=== PATIENT | male | born 1990 | race Caucasian/White ===

== ENCOUNTER → 2019-08-03 | Outpatient (CLI) | payer BC ==
[2014-08-11 11:46] VITALS: BP 110/72
[~2019-08-03] MED LIST: TRAM50TA PO
[2019-08-03 14:29] LABS: BASO % 0 % (0-3); EOS # 0.1 x10^3/uL (0.0-0.7); EOS % 1 % (0-3); HEMATOCRIT 41.9 % (39.0-53.0); HEMOGLOBIN 14.2 g/dL (13.0-17.5); LYMPH # 2.9 x10^3/uL (1.0-4.8); LYMPH % 39 % (24-48); MEAN CORPUSCULAR HEMOGLOBIN 31 pg (25-35); MEAN CORPUSCULAR HGB CONC 34 g/dL (31-37); MEAN CORPUSCULAR VOLUME 92 fL (79-100); MONO % 13 % (0-9); NEUT # 3.6 x10^3uL (1.8-7.7); NEUT % 47 % (31-73); PLATELET COUNT 266 x10^3/uL (140-400); RED BLOOD COUNT 4.56 x10^6/uL (4.30-5.70); RED CELL DISTRIBUTION WIDTH 13.7 % (11.5-14.5); WHITE BLOOD COUNT 7.6 x10^3/uL (4.0-11.0)
[2019-08-03 14:38] LABS: ALBUMIN 3.9 g/dL (3.4-5.0); ALBUMIN/GLOBULIN RATIO 1.1 (1.0-1.7); CALCIUM 9.5 mg/dL (8.5-10.1); CREATININE 0.8 mg/dL (0.7-1.3); GFR 115.1; POTASSIUM 4.7 mmol/L (3.5-5.1); TOTAL BILIRUBIN 0.2 mg/dL (0.2-1.0); TOTAL PROTEIN 7.5 g/dL (6.4-8.2)
== END | disposition home or self-care (01) ==
LOC: LAB 13:48
PROVIDERS: ATTEND Physician Assistant Medical
DX: C71.9 Malignant neoplasm of brain, unspecified (principal); R22.1 Localized swelling, mass and lump, neck; Z85.841 Personal history of malignant neoplasm of brain
CPT/HCPCS: 36415; 80053; 85025

== ENCOUNTER 2020-04-18 14:28 | Inpatient (IN) | payer BC ==
[~2020-04-18] VITALS: Ht 182.9 cm; Wt 89.5 kg
[2020-04-18] MEDS ORDERED: IV NORMAL SALINE 1,000ML 1,000 ML IV ONE (14:45)
[2020-04-18] MEDS ORDERED: methylPREDNISolone SOD SUCC PF 125 MG/2 ML VIAL. IV ONE (14:45)
[2020-04-18] MEDS ORDERED: MAGNESIUM SULFATE 2GM 50 ML IV ONE (14:45)
--- NOTE | 2020-04-18 14:58 | PHYS DOC ---
Past History Past Medical History: Asthma, Depression, Other Past Surgical History: Cancer Surgery Alcohol Use: Occasionally Drug Use: None General Adult EDM: Chief Complaint: SHORTNESS OF BREATH HPI: HPI: History obtained from patient and father. Patient is a 21-year-old male with a history of glioblastoma and remote history of asthma who presents with chief complaint of shortness of breath. Father patient states that he has had shortness of breath progressed over the past several days to a couple weeks. They note that he has had upper respiratory congestion. He recently started amoxicillin that was called in by his primary care physician. He is also taking Decadron daily since October of this year due to his glioblastoma. He is currently taking Avastin and Trametinil for his glioblastoma. Dad states occasionally he shows signs of aspiration when he gets very tired taking his medication. Patient is largely immobile dad states. Denies any true blood clot in legs or lungs. Patient denies any chest pain. Denies fevers. Denies cough. Denies any syncope. Patient did receive DuoNeb breathing treatments in route by EMS with improvement of his breathing. No other complaints. Review of Systems: Review of Systems: Constitutional: Denies fever or chills Eyes: Denies change in visual acuity HENT: Positive for nasal congestion Respiratory: Positive shortness of breath Cardiovascular: Denies chest pain or edema GI: Denies abdominal pain, nausea, vomiting, bloody stools or diarrhea : Denies dysuria Musculoskeletal: Denies back pain or joint pain Integument: Denies rash Neurologic: Denies headache, focal weakness or sensory changes Endocrine: Denies polyuria or polydipsia Lymphatic: Denies swollen glands Psychiatric: Denies depression or anxiety Current Medications: Current Meds: Current Medications Medications (Trade) Dose Ordered Sig/Puma Start Time Stop Time Status Last Admin Dose Admin Magnesium Sulfate 50 ml @ 25 mls/hr 1X ONCE 04/18/20 14:45 04/18/20 16:44 Methylprednisolone Sodium Succinate (SOLU-Medrol 125MG VIAL) 125 mg 1X ONCE 04/18/20 14:45 04/18/20 14:46 DC Sodium Chloride 1,000 ml @ 1,000 mls/hr 1X ONCE 04/18/20 14:45 04/18/20 15:44 Allergies: Allergies: Allergies Coded Allergies Type Severity Reaction Last Updated Verified cefaclor Allergy Intermediate Hives 04/18/20 Yes Physical Exam: PE: Constitutional: Well developed, well nourished, no acute distress, non-toxic appearance. [] HENT: Normocephalic, atraumatic, bilateral external ears normal, oropharynx moist, no oral exudates, nose normal. Dry mucous membranes. [] Eyes: PERRLA, EOMI, conjunctiva normal, no discharge. [] Neck: Normal range of motion, no tenderness, supple, no stridor. [] Cardiovascular: Tachycardic, regular, no murmur [] Lungs & Thorax: Poor inspiratory effort. Diminished lung sounds throughout. No obvious wheezes appreciated. Abdomen: soft, no tenderness, no masses, no pulsatile masses. [] Skin: Warm, dry, no erythema, no rash. [] Back: No tenderness, no CVA tenderness. [] Extremities: No tenderness, no cyanosis, no clubbing, ROM intact, no edema. [] Neurologic: Alert and oriented X 3, normal motor function, normal sensory function, no focal deficits noted. [] Psychologic: Affect normal, judgement normal, mood normal. [] Current Patient Data: Labs: Laboratory Tests Test 04/18/20 15:11 White Blood Count 12.5 x10^3/uL Red Blood Count 5.13 x10^6/uL Hemoglobin 14.4 g/dL Hematocrit 44.9 % Mean Corpuscular Volume 88 fL Mean Corpuscular Hemoglobin 28 pg Mean Corpuscular Hemoglobin Concent 32 g/dL Red Cell Distribution Width 17.2 % Platelet Count 238 x10^3/uL Neutrophils (%) (Auto) 69 % Lymphocytes (%) (Auto) 25 % Monocytes (%) (Auto) 5 % Eosinophils (%) (Auto) 1 % Basophils (%) (Auto) 0 % Neutrophils # (Auto) 8.6 x10^3uL Lymphocytes # (Auto) 3.2 x10^3/uL Monocytes # (Auto) 0.7 x10^3/uL Eosinophils # (Auto) 0.1 x10^3/uL Basophils # (Auto) 0.0 x10^3/uL Sodium Level 136 mmol/L Potassium Level 4.0 mmol/L Chloride Level 98 mmol/L Carbon Dioxide Level 34 mmol/L Anion Gap 4 Blood Urea Nitrogen 28 mg/dL Creatinine 0.9 mg/dL Estimated GFR (Cockcroft-Gault) 100.5 Glucose Level 76 mg/dL Lactic Acid Level 1.9 mmol/L Calcium Level 9.4 mg/dL Magnesium Level 2.0 mg/dL Troponin I Quantitative < 0.017 ng/mL IA-Hoo-T-Type Natriuretic Peptide 11 pg/mL Current Medications Medications (Trade) Dose Ordered Sig/Puma Route PRN Reason Start Time Stop Time Status Last Admin Dose Admin Sodium Chloride 1,000 ml @ 1,000 mls/hr 1X ONCE IV 04/18/20 14:45 04/18/20 15:44 DC 04/18/20 15:32 Magnesium Sulfate 50 ml @ 25 mls/hr 1X ONCE IV 04/18/20 14:45 04/18/20 16:44 DC 04/18/20 15:32 Methylprednisolone Sodium Succinate (SOLU-Medrol 125MG VIAL) 125 mg 1X ONCE IV 04/18/20 14:45 04/18/20 14:46 DC 04/18/20 15:32 Iohexol (Omnipaque 350 Mg/ml) 100 ml 1X ONCE IV 04/18/20 15:00 04/18/20 15:01 DC 04/18/20 15:21 Vancomycin HCl 1 gm/Sodium Chloride 250 ml @ 250 mls/hr 1X ONCE IV 04/18/20 16:15 04/18/20 16:20 DC Piperacillin Sod/ Tazobactam Sod 3.375 gm/Sodium Chloride 50 ml @ 100 mls/hr 1X ONCE IV 04/18/20 16:15 04/18/20 16:44 DC Vancomycin HCl 2 gm/Sodium Chloride 500 ml @ 250 mls/hr 1X ONCE IV 04/18/20 16:30 04/18/20 18:29 EKG: EKG: [] EKG consistent with sinus tachycardia. Ventricular rate of 104 bpm. [place] normal. Intervals normal. No acute ischemia noted. Radiology/Procedures: Radiology/Procedures: [address] [address] IMAGING REPORT Signed PATIENT: DWAYNE NUÑEZ ACCOUNT: [id number] : 1990 LOCATION: ER AGE: 29 SEX: M EXAM STATUS: REG ER ORD. PHYSICIAN: ROMANA LARRY DO REASON: SOB. immobil. eval for PNA vs. PE PROCEDURE: CT ANGIOGRAPHY CHEST EXAMINATION: CTA CHEST CLINICAL HISTORY: Shortness of breath concerning for pneumonia versus PE Technique: Spiral CT acquisition of the chest from the thoracic inlet to the upper abdomen following IV contrast with coronal and sagittal reformatted images also provided for review. CT Dose Reduction Employed: One or more of the following individualized dose reduction techniques were utilized for this examination: 1. Automated exposure control 2. Adjustment of the mA and/or kV according to patient size 3. Use of iterative reconstruction technique. Comparison: Chest radiograph same day FINDINGS: Limitations: None. Lines, Tubes, and Devices: None. Pulmonary Vasculature: No evidence of main, lobar, or segmental pulmonary arterial thrombus. Normal caliber of the main pulmonary artery. Lung Parenchyma, Pleura, and Airways: Consolidation primarily in the bilateral lower lobes but also in the right middle lobe and posterior inferior left upper lobe. No pneumothorax or pleural effusion. Central airways patent. Lower Neck, Lymph Nodes, and Mediastinum: Visualized thyroid gland within normal limits. No mediastinal, hilar, or axillary lymphadenopathy. Heart, Pericardium, and Thoracic Vessels: Cardiac chambers normal in size. Small pericardial effusion. Thoracic aorta within normal limits. No coronary artery atherosclerotic calcifications are noted, although the study is not optimized for coronary assessment. Bones and Soft Tissues: No acute osseous abnormality. Upper Abdomen: Borderline hepatic steatosis. IMPRESSION: No evidence of pulmonary embolism. Multifocal consolidation as described, compatible with pneumonia. Small pericardial effusion. Electronically signed by: Luis Corbin DO (04/18/2020 3:49 PM) [id number] DICTATED AND SIGNED BY: LUIS CORBIN DO DATE: 04/18/20 1535 CC: KATELIN FRANK; ROMANA LARRY DO ~MTH0 0 [] Heart Score: Risk Factors: Risk Factors: DM, Current or recent (<one month) smoker, HTN, HLP, family history of CAD, obesity. Risk Scores: Score 0 - 3: 2.5% MACE over next 6 weeks - Discharge Home Score 4 - 6: 20.3% MACE over next 6 weeks - Admit for Clinical Observation Score 7 - 10: 72.7% MACE over next 6 weeks - Early Invasive Strategies Course & Med Decision Making: Course & Med Decision Making Pertinent Labs and Imaging studies reviewed. (See chart for details) [] Patient is a 29-year-old male with a history of glioblastoma currently taking chemotherapy medication who presents with chief complaint of progressive sh ortness of breath. Initial vital signs notable for mild tachycardia. Lung sounds diminished throughout. No obvious wheezes appreciated. Satting appropriately on room air. Blood cultures were obtained and pending. CT of the chest was obtained evaluate for infection versus PE. Multifocal pneumonia is present. Skin related to aspiration. Shows no signs of neutropenia. Covid swab pending as well. Vancomycin and Zosyn were administered given his chemotherapy status. Patient and family did request hospitalization or facility. Patient has been signed out and accepted by Dr. Romero. Remains hemodynamically stable. Dragon Disclaimer: Dragon Disclaimer: This electronic medical record was generated, in whole or in part, using a voice recognition dictation system. Departure Departure: Impression: Primary Impression: Multifocal pneumonia Additional Impression: Glioblastoma Disposition: ADMITTED INPT THIS HOSP Condition: STABLE Referrals: KATELIN FRANK (PCP) ROMANA LARRY DO Apr 18, 2020 14:58
[2020-04-18] MEDS ORDERED: IOHEXOL 350 MG/ML 100 ML VIAL. IV ONE (15:00)
--- NOTE | 2020-04-18 15:02 | RAD ---
Examination: XR CHEST 1V History: Reason: SOB / Spl. Instructions: / History: Comparison/Correlation: None Findings: Portable peripheral view chest was obtained. Multiple manipulations noted. Bibasal atelecta sis is present. No significant effusion suspected. No pneumothorax. Bony structures are unremarkable. Impression: Bibasal atelectasis. Very limited pulmonary inflation. Consider interval follow-up two-view chest x-r ay for more complete assessment. Electronically signed by: Tc Alegria MD (04/18/2020 2:59 PM) [id number]
[2020-04-18 15:46] LABS: BASO % 0 % (0-3); EOS # 0.1 x10^3/uL (0.0-0.7); EOS % 1 % (0-3); HEMATOCRIT 44.9 % (39.0-53.0); HEMOGLOBIN 14.4 g/dL (13.0-17.5); LYMPH # 3.2 x10^3/uL (1.0-4.8); LYMPH % 25 % (24-48); MEAN CORPUSCULAR HEMOGLOBIN 28 pg (25-35); MEAN CORPUSCULAR HGB CONC 32 g/dL (31-37); MEAN CORPUSCULAR VOLUME 88 fL (79-100); MONO # 0.7 x10^3/uL (0.0-1.1); MONO % 5 % (0-9); NEUT # 8.6 x10^3uL (1.8-7.7); NEUT % 69 % (31-73); PLATELET COUNT 238 x10^3/uL (140-400); RED BLOOD COUNT 5.13 x10^6/uL (4.30-5.70); RED CELL DISTRIBUTION WIDTH 17.2 % (11.5-14.5); WHITE BLOOD COUNT 12.5 x10^3/uL (4.0-11.0)
--- NOTE | 2020-04-18 15:52 | RAD ---
EXAMINATION: CTA CHEST CLINICAL HISTORY: Shortness of breath concerning for pneumonia versus PE Technique: Spiral CT acquisition of the chest from the thoracic inlet to the upper abdomen following IV contrast with coronal and sagittal reformatted images also provided for review. CT Dose Reduction Employed: One or more of the following individualized dose reduction techniques wer e utilized for this examination: 1. Automated exposure control 2. Adjustment of the mA and/or kV ac cording to patient size 3. Use of iterative reconstruction technique. Comparison: Chest radiograph same day FINDINGS: Limitations: None. Lines, Tubes, and Devices: None. Pulmonary Vasculature: No evidence of main, lobar, or segmental pulmonary arterial thrombus. Normal c aliber of the main pulmonary artery. Lung Parenchyma, Pleura, and Airways: Consolidation primarily in the bilateral lower lobes but also i n the right middle lobe and posterior inferior left upper lobe. No pneumothorax or pleural effusion. Central airways patent. Lower Neck, Lymph Nodes, and Mediastinum: Visualized thyroid gland within normal limits. No mediastin al, hilar, or axillary lymphadenopathy. Heart, Pericardium, and Thoracic Vessels: Cardiac chambers normal in size. Small pericardial effusion . Thoracic aorta within normal limits. No coronary artery atherosclerotic calcifications are noted, a lthough the study is not optimized for coronary assessment. Bones and Soft Tissues: No acute osseous abnormality. Upper Abdomen: Borderline hepatic steatosis. IMPRESSION: No evidence of pulmonary embolism. Multifocal consolidation as described, compatible with pneumonia. Small pericardial effusion. Electronically signed by: Luis Obrien DO (04/18/2020 3:49 PM) [id number]
[2020-04-18 15:54] LABS: CALCIUM 9.4 mg/dL (8.5-10.1); CREATININE 0.9 mg/dL (0.7-1.3); GFR 100.5
[2020-04-18] MEDS ORDERED: PIPERACILLIN/TAZOBACTAM 3.375 GM in IV NORMAL SALINE 50ML 50 ML IV ONE ×2 (16:15→20:30)
[2020-04-18] MEDS ORDERED: VANCOMYCIN 1 GM in IV NORMAL SALINE 250ML 250 ML IV ONE (16:15)
[2020-04-18] MEDS ORDERED: VANCOMYCIN 2 GM in IV NORMAL SALINE 500ML 500 ML IV ONE (16:30)
--- NOTE | 2020-04-18 17:26 | EKG ---
[address] [address] Test Date: 2020-04-18 Test Time: 17:21:08 Pat Name: DWAYNE NUÑEZ Department: Room: Gender: M Crushing Foreman: FABIANA : 1990 Requested By: ROMANA LARRY Order Number: [id number] Reading MD: Measurements Intervals [place] Rate: 104 P: 47 MS: 136 QRS: 9 QRSD: 94 T: 48 QT: 324 QTc: 432 Interpretive Statements SINUS TACHYCARDIA OTHERWISE NORMAL ECG RI6.02 No previous ECG available for comparison
[2020-04-18 20:00] VITALS: BP 118/90
[2020-04-18] MEDS ORDERED: BUPR150T11 PO (20:36)
[2020-04-18] MEDS ORDERED: TRAM2TAB PO (20:36)
[2020-04-18] MEDS ORDERED: ACET325T21 PO (20:36)
[2020-04-18] MEDS ORDERED: LACT1CAP19 PO (20:36)
[2020-04-18] MEDS ORDERED: VITA1TAB19 PO (20:36)
[2020-04-18] MEDS ORDERED: HYDR-2155 PO (20:36)
[2020-04-18] MEDS ORDERED: GABA600T7 PO (20:36)
[2020-04-18] MEDS ORDERED: VITA50004 PO (20:36)
[2020-04-18] MEDS ORDERED: DIAZ5TAB4 PO (20:36)
[2020-04-18] MEDS ORDERED: LEVO50TA72 PO (20:36)
[2020-04-18] MEDS ORDERED: IPRA4AER INH (20:36)
[2020-04-18] MEDS ORDERED: DEXA6TAB6 PO (20:38)
[2020-04-18 21:00] VITALS: BP 104/61
[2020-04-18 22:00] VITALS: BP 97/67
[2020-04-18 23:29] VITALS: BP 109/68
[2020-04-19 02:02] VITALS: BP 108/79
[2020-04-19 03:05] VITALS: BP 106/80
[2020-04-19] MEDS ORDERED: DOCU-109 PO (03:29)
[2020-04-19 04:07] VITALS: BP 115/81
[2020-04-19] MEDS: VANCOMYCIN 1.5 GM in IV NORMAL SALINE 500ML 500 ML IV SCH ×2 (06:00→18:00)
[2020-04-19 06:28] VITALS: BP 120/87
[2020-04-19 06:31] LABS: BASO % 0 % (0-3); EOS % 0 % (0-3); HEMATOCRIT 38.4 % (39.0-53.0); HEMOGLOBIN 12.5 g/dL (13.0-17.5); LYMPH # 1.2 x10^3/uL (1.0-4.8); LYMPH % 12 % (24-48); MEAN CORPUSCULAR HEMOGLOBIN 28 pg (25-35); MEAN CORPUSCULAR HGB CONC 33 g/dL (31-37); MEAN CORPUSCULAR VOLUME 87 fL (79-100); MONO # 0.4 x10^3/uL (0.0-1.1); MONO % 4 % (0-9); NEUT # 8.7 x10^3uL (1.8-7.7); NEUT % 84 % (31-73); PLATELET COUNT 209 x10^3/uL (140-400); RED BLOOD COUNT 4.42 x10^6/uL (4.30-5.70); RED CELL DISTRIBUTION WIDTH 17.2 % (11.5-14.5); WHITE BLOOD COUNT 10.4 x10^3/uL (4.0-11.0)
[2020-04-19] MEDS ORDERED: traMADol 50 MG TABLET PO PRN (06:42)
[2020-04-19] MEDS ORDERED: ACETAMINOPHEN 325 MG TABLET PO PRN (06:45)
[2020-04-19 07:22] LABS: CALCIUM 8.5 mg/dL (8.5-10.1); CREATININE 0.7 mg/dL (0.7-1.3); GFR 134.3; POTASSIUM 4.1 mmol/L (3.5-5.1)
[2020-04-19] MEDS ORDERED: FLU VACC QS 2020-21(6MOS+)/PF 0.5 ML SYRINGE. VAX IM ONE (08:00)
[2020-04-19] MEDS: LACTOBACILLUS RHAMNOSUS GG 1 CAPSULE. PO SCH (08:16)
[2020-04-19] MEDS: CHOLECALCIFEROL (VITAMIN D3) 1,000 UNIT TABLET PO SCH (08:16)
[2020-04-19] MEDS: FOLIC ACID 1 MG TABLET PO SCH (08:16)
[2020-04-19] MEDS: VITAMIN B COMPLEX CAPSULE. PO SCH (08:17)
[2020-04-19] MEDS: GABAPENTIN 300 MG CAPSULE. PO SCH ×3 (08:17→20:31)
[2020-04-19] MEDS: DOCUSATE SODIUM 100 MG CAPSULE PO SCH ×2 (08:17→20:31)
[2020-04-19] MEDS: LEVOTHYROXINE 50 MCG TABLET PO SCH (08:17)
[2020-04-19] MEDS: buPROPion SR 150 MG TABLET.SA PO SCH (08:17)
[2020-04-19] MEDS: DEXAMETHASONE 4 MG TABLET PO SCH (08:17)
[2020-04-19] MEDS: IPRATROPIUM/ALBUTEROL 20/100mcg/INH INHALER. INH SCH ×4 (09:00→20:31)
[2020-04-19] MEDS: TRAMETINIB DIMETHYL SULFOXIDE 2 MG PO SCH (09:00)
[2020-04-19] MEDS: VANCOMYCIN PER PHARMACY MC PRN (13:51)
[2020-04-19] MEDS: MEROPENEM 1 GM in IV NORMAL SALINE 100ML 100 ML IV SCH ×2 (15:00→21:45)
--- NOTE | 2020-04-19 16:10 | HP ---
ADMIT DATE: 04/18/2020 HISTORY OF PRESENT ILLNESS: The patient is a 29-year-old male patient with multiple medical problems including history of medulloblastoma diagnosed in 2006, treated with surgery, chemotherapy, and radiation. He was also diagnosed with glioblastoma in 2019 and had had surgery twice in 2019 and 2019 and treated also with chemotherapy, radiation therapy, and proton radiation. He also was known to have childhood bronchial asthma and was basically noted by his mother to be short of breath and extremely tachypneic. According to his mother, he also has dysphagia and this has been going on for the last 2-3 months and therefore, she called the ambulance and was transferred to [facility] Emergency Room, where he was extensively investigated. His lab work showed that he has leukocytosis with a white cell count 12,500. His chemistry was unremarkable. His chest x-ray showed initially the bilateral atelectasis; however, CT angio of the chest showed the patient has no evidence of pulmonary emboli; however, he has multifocal consolidation primarily in the bilateral lower lobes, but also in the right middle lobe and posterior inferior left upper lobe. No pneumothorax or pleural effusion. Central airways are patent, and the patient was admitted with community-acquired pneumonia with possible aspiration pneumonia given his neurological status and was started on IV Zosyn and vancomycin. He was continued on dexamethasone, which he is getting on a daily basis for his glioblastoma. He is basically mostly homebound. Both parents are working from home, and has very little exposure to COVID-19, although he was swabbed in the Emergency Room. PAST MEDICAL HISTORY: Significant for: 1. Bronchial asthma during childhood. 2. Medulloblastoma diagnosed in 2006, treated with resection and chemotherapy as well as radiation treatment. 3. Glioblastoma multiforme diagnosed in 2019. At that time, he underwent surgery as well as chemotherapy and radiation and has another surgery in 2020. He was treated also with proton radiation. PAST SURGICAL HISTORY: Multiple surgical resections of that medulloblastoma and his glioblastoma. He has had no other surgeries. ALLERGIES: HE IS ALLERGIC TO CEFACLOR. MEDICATIONS: He is currently on following medications: He is on Mekinist 2 mg daily. He is on ipratropium bromide, albuterol sulfate 1 puff 4 times a day, hydrocodone/APAP 5/325 one tablet every 6 hours, tramadol 50 mg 1-2 tablets every 6 hours, acetaminophen 650 mg every 4-6 hours, gabapentin 600 mg 2 times a day, Wellbutrin-SR 150 mg daily, diazepam 5 mg at bedtime, Colace 100 mg twice a day, lactobacillus rhamnosus 1 capsule twice a day, dexamethasone 2 mg daily, levothyroxine sodium 50 mcg once a day, vitamin B complex 1 tablet once a day and vitamin D/folic acid 1 tablet daily. FAMILY HISTORY: Both parents are alive and healthy. He has one sister who at the age of 22 in 2002 due to melanoma. SOCIAL HISTORY: He lives with his parents. He does not smoke or drink alcohol; however, he did experiment with marijuana and has used CBD oil for a therapeutic trial. REVIEW OF SYSTEMS: The patient stated that he has diplopia and he does use glasses for that. He also is hard of hearing in the left ear and has multiple episodes of nosebleed. According to his mom. He also has difficulty swallowing and chokes with food, although there is no history of nausea and vomiting. He does have constipation and he does not have any bowel movements for 4-5 days. He is mostly bedbound, wheelchair bound. He has been unsteady and unable to walk since his first surgery on his medulloblastoma. PHYSICAL EXAMINATION: GENERAL: On arrival to the Emergency Room, he looked well and was clearly in no apparent respiratory distress. No pallor, jaundice, cyanosis or thyromegaly. No jugular venous distention or limb edema. VITAL SIGNS: His heart rate was 104, blood pressure was 130/104, temperature was 97.3, respiratory rate was 18 and oxygen saturation was 94% on 2 liters of oxygen. HEAD, EYES, EARS, NOSE AND THROAT: Showed normocephalic, atraumatic. NECK: Supple. HEART: Showed normal first and second heart sounds. No gallop, rub or murmur. CHEST: Clear to auscultation. No crepitation or rhonchi. ABDOMEN: Distended, soft, nontender. No guarding or rigidity. No organomegaly. All hernial orifices intact. Bowel sounds normal. NEUROLOGIC: He was awake, alert, responding appropriately. All his cranial nerves are grossly intact, although he does have diplopia as well as sensorineural deafness in the left ear. EXTREMITIES: He moves upper extremities probably too much to good extent. The lower extremities has bilateral foot drop. He is mostly bedbound. LABORATORY DATA: His lab work on arrival to the Emergency Room showed a white cell count of 12,500, hemoglobin 14, hematocrit 44, MCV 88, and platelet count 238,000. Serum sodium was 136, potassium 4, chloride 98, bicarbonate 34, anion gap of 4, BUN 28, creatinine 0.9, estimated GFR was 100 mL per minute. His glucose was 76 and calcium was 9.4, magnesium was 2. His chest x-ray showed bibasilar atelectasis with very limited pulmonary inflation; however, he did have a CT angio of the chest, which basically showed no evidence of pulmonary embolism; however, had multifocal consolidation as described compatible with pneumonia and small pericardial effusion. ASSESSMENT AND PLAN: In summary, this is a 29-year-old male patient who was admitted with increasing shortness of breath and tachypnea as well as hypoxia, who was admitted with probably community-acquired pneumonia or aspiration pneumonia as he does have dysphagia. Other medical problems include: 1. Medulloblastoma diagnosed in 2006, treated with resection, chemotherapy and radiation therapy. 2. Childhood bronchial asthma. 3. He was diagnosed with glioblastoma multiforme in 2018, treated with surgery as well as chemo or radiation therapy and he underwent again another resection in 2019 and treated with chemotherapy and radiation treatment. He is also known to have hypothyroidism. My plan is obviously to continue with the IV antibiotic. Continue with dexamethasone. We did actually send his swab for COVID-19, the result of which is still pending at the time of this dictation. ANGELA DANIELSON MD DR: TIM/renato JOB#: [id number] / [id number]
[2020-04-19 19:30] VITALS: BP 125/97
--- NOTE | 2020-04-19 20:12 | PN ---
DATE: 04/19/2020 SUBJECTIVE: The patient is resting, slightly propped up in bed, in no apparent respiratory distress. He denied any complaint. He was admitted yesterday for possible community-acquired pneumonia versus aspiration pneumonia as he has dysphagia. He is now on 2 liters of oxygen, maintaining his oxygen saturation at 95%. He is not on any oxygen at home. PHYSICAL EXAMINATION: GENERAL: When I examined him, he looked well and was clearly in no apparent respiratory distress. No pallor, jaundice, cyanosis or thyromegaly. No jugular venous distention. No limb edema. VITAL SIGNS: His heart rate was 90, blood pressure was 120/87, temperature was 98.3, respiratory rate was 19 and oxygen saturation was 95% on 2 liters of oxygen. HEAD, EYES, EARS, NOSE, AND THROAT: Showed normocephalic, atraumatic. NECK: Supple. HEART: Showed normal first and second heart sounds. No gallop or murmur. CHEST: Clear to auscultation. No crepitation or rhonchi. ABDOMEN: Distended, soft, nontender. NEUROLOGIC: He is awake, alert, responding appropriately, although sometimes difficult to understand. He has diplopia, severe sensorineural deafness in the left ear. He is mostly bedbound. His intake over the last 24 hours and output are incompletely recorded. LABORATORY DATA: His lab work this morning showed a white cell count of 10,400; hemoglobin 12.5; hematocrit 38; MCV 87; and platelet count 209,000. Serum sodium 138, potassium 4.1, chloride 100, bicarbonate 30, anion gap of 8, BUN 16, creatinine 0.7, estimated GFR was 134 mL per minute, his glucose 134, calcium was 8.5 and lactic acid is 1.9. ASSESSMENT: 1. This is a 29-year-old male patient who was admitted with probably aspiration pneumonia versus community-acquired pneumonia. 2. Dysphagia. 3. Hypothyroidism. 4. Bronchial asthma. 5. Glioblastoma that was resected twice. He is now on chemotherapy and dexamethasone. 6. Remote history of medulloblastoma, 2006, treated with resection, chemotherapy and radiation treatment. PLAN: To continue with IV antibiotic. Continue with dexamethasone. Continue with all his other medications. Await the result of the COVID-19 by PCR. ANGELA DANIELSON MD DR: TIM/renato JOB#: [id number] / [id number]
[2020-04-19] MEDS: diazePAM 5 MG TABLET. PO PRN (20:35)
[2020-04-19] MEDS ORDERED: BISACODYL 10 MG SUPP.RECT PR ONE (21:00)
[2020-04-19 23:32] VITALS: BP 111/83
[2020-04-20 05:33] VITALS: BP 123/90
[2020-04-20] MEDS ORDERED: BISACODYL 10 MG SUPP.RECT PR PRN (06:00)
[2020-04-20] MEDS: LEVOTHYROXINE 50 MCG TABLET PO SCH (07:51)
[2020-04-20] MEDS: MEROPENEM 1 GM in IV NORMAL SALINE 100ML 100 ML IV SCH ×3 (07:51→22:57)
[2020-04-20] MEDS: VANCOMYCIN 1.5 GM in IV NORMAL SALINE 500ML 500 ML IV SCH ×2 (07:52→20:15)
[2020-04-20 08:21] LABS: ALBUMIN/GLOBULIN RATIO 0.6 (1.0-1.7); CALCIUM 8.6 mg/dL (8.5-10.1); CREATININE 0.8 mg/dL (0.7-1.3); GFR 115.1; MAGNESIUM 2.1 mg/dL (1.8-2.4); TOTAL BILIRUBIN 0.1 mg/dL (0.2-1.0); TOTAL PROTEIN 5.4 g/dL (6.4-8.2); VANC TR 11.3 mcg/mL (10.0-20.0)
[2020-04-20] MEDS ORDERED: FLU VACC QS 2020-21(6MOS+)/PF 0.5 ML SYRINGE. VAX IM ONE (09:00)
[2020-04-20] MEDS: IPRATROPIUM/ALBUTEROL 20/100mcg/INH INHALER. INH SCH ×4 (09:00→20:14)
[2020-04-20] MEDS: DEXAMETHASONE 4 MG TABLET PO SCH (09:41)
[2020-04-20] MEDS: VITAMIN B COMPLEX CAPSULE. PO SCH (09:41)
[2020-04-20] MEDS: buPROPion SR 150 MG TABLET.SA PO SCH (09:42)
[2020-04-20] MEDS: GABAPENTIN 300 MG CAPSULE. PO SCH ×3 (09:42→20:14)
[2020-04-20] MEDS: LACTOBACILLUS RHAMNOSUS GG 1 CAPSULE. PO SCH (09:42)
[2020-04-20] MEDS: CHOLECALCIFEROL (VITAMIN D3) 1,000 UNIT TABLET PO SCH (09:42)
[2020-04-20] MEDS: FOLIC ACID 1 MG TABLET PO SCH (09:42)
[2020-04-20] MEDS: DOCUSATE SODIUM 100 MG CAPSULE PO SCH ×2 (09:42→20:14)
[2020-04-20] MEDS: TRAMETINIB DIMETHYL SULFOXIDE 2 MG PO SCH (11:30)
[2020-04-20] MEDS ORDERED: MAGNESIUM CITRATE 296 ML SOLUTION. PO ONE (13:00)
[2020-04-20] MEDS ORDERED: SODIUM CHL/ALOE VERA NASAL GEL 14.1GM TUBE. NS PRN (13:00)
[2020-04-20] MEDS: VANCOMYCIN PER PHARMACY MC PRN (14:01)
[2020-04-20 19:46] VITALS: BP_SYST 107; BP_SYST 114; BP_DIAS 49; BP_DIAS 84
--- NOTE | 2020-04-20 19:59 | PN ---
DATE: 04/20/2020 SUBJECTIVE: The patient is resting, slightly propped up in bed, in no apparent distress. He did complain of stuffiness in his nostril and some dried blood. He also had constipation, although has 2 small bowel movements; however, he is afebrile. He is maintaining his oxygen saturation at 93% on room air. PHYSICAL EXAMINATION: GENERAL: When I examined him, he looked well and was clearly in no apparent respiratory distress. There is no pallor, jaundice, cyanosis or thyromegaly. No jugular venous distention or limb edema. VITAL SIGNS: Her heart rate was 87, blood pressure was 123/90, temperature was 98, respiratory rate was 20, and oxygen saturation was 96% on 2 liters of oxygen. HEAD, EYES, EARS, NOSE, THROAT: Showed normocephalic, atraumatic. NECK: Supple. HEART: Showed normal first and second heart sounds. No gallop, rub or murmur. CHEST: Clear to auscultation. No crepitation or rhonchi. ABDOMEN: Distended, soft, nontender. NEUROLOGIC: He is awake, alert, responding appropriately. He does have some dysarthria and he apparently has marked cerebellar ataxia. He is mostly bedbound, chair bound. His intake was 1170, output was 850. LABORATORY DATA: As of this morning, his serum sodium 143, potassium 4, chloride 106, bicarbonate 32. Her anion gap of 5, BUN 23, creatinine 0.8, estimated GFR was 115 mL per minute. Her glucose 110, calcium was 8.8, magnesium was 2.1. Total bilirubin, AST, ALT, alkaline phosphatase were normal. Total protein was 5.4, albumin 2. Her coronavirus by PCR was not detectable. ASSESSMENT: 1. This is a 29-year-old male patient who was admitted with probable aspiration pneumonia versus community-acquired pneumonia. 2. Dysphagia. 3. Hypothyroidism. 4. Bronchial asthma. 5. Glioblastoma multiforme that was resected twice. He is now on chemotherapy and dexamethasone. 6. Remote history of medulloblastoma in 2006 treated with resection, chemotherapy and radiation treatment. PLAN: To continue with IV antibiotic. Continue with dexamethasone. Continue with all his other medications. His COVID-19 by PCR was negative. I will add Flonase as well as saline nasal spray. ANGELA DANIELSON MD DR: Denise JOB#: [id number] / [id number]
[2020-04-20] MEDS: ACETAMINOPHEN 325 MG TABLET PO SCH (20:14)
[2020-04-20] MEDS: diazePAM 5 MG TABLET. PO PRN (21:26)
[2020-04-20 23:00] VITALS: BP 90/57
[2020-04-21] VITALS (7 sets, daily range): BP systolic 115–139; BP diastolic 84–104
[2020-04-21] MEDS: ACETAMINOPHEN 325 MG TABLET PO SCH ×6 (04:00→19:39)
[2020-04-21] MEDS: MEROPENEM 1 GM in IV NORMAL SALINE 100ML 100 ML IV SCH ×3 (06:06→22:07)
[2020-04-21] MEDS: LEVOTHYROXINE 50 MCG TABLET PO SCH (06:06)
[2020-04-21] MEDS: traMADol 50 MG TABLET PO PRN ×2 (06:31→15:03)
[2020-04-21 08:15] LABS: HEMATOCRIT 39.7 % (39.0-53.0); HEMOGLOBIN 12.7 g/dL (13.0-17.5); RED BLOOD COUNT 4.5 x10^6/uL (4.30-5.70); RED CELL DISTRIBUTION WIDTH 17.1 % (11.5-14.5); WHITE BLOOD COUNT 9.4 x10^3/uL (4.0-11.0)
[2020-04-21 08:18] LABS: VANC TR 13.6 mcg/mL (10.0-20.0)
[2020-04-21 08:21] LABS: ALBUMIN 2.2 g/dL (3.4-5.0); ALBUMIN/GLOBULIN RATIO 0.5 (1.0-1.7); CREATININE 0.7 mg/dL (0.7-1.3); GFR 134.3; POTASSIUM 4.5 mmol/L (3.5-5.1); TOTAL BILIRUBIN 0.2 mg/dL (0.2-1.0); TOTAL PROTEIN 6.7 g/dL (6.4-8.2)
[2020-04-21] MEDS ORDERED: METHYL SALICYLATE/MENTHOL TOPICAL OINTMENT 57GM TUBE. TP PRN (08:45)
[2020-04-21] MEDS: BACLOFEN 10 MG TABLET PO PRN ×2 (08:47→19:38)
[2020-04-21] MEDS: VANCOMYCIN 1.5 GM in IV NORMAL SALINE 500ML 500 ML IV SCH ×2 (08:47→19:40)
[2020-04-21] MEDS: HYDROcodone/APAP 5/325MG 1 TAB TABLET PO PRN ×2 (08:48→13:40)
[2020-04-21] MEDS: VITAMIN B COMPLEX CAPSULE. PO SCH (08:48)
[2020-04-21] MEDS: DOCUSATE SODIUM 100 MG CAPSULE PO SCH ×2 (08:48→19:39)
[2020-04-21] MEDS: FOLIC ACID 1 MG TABLET PO SCH (08:48)
[2020-04-21] MEDS: LACTOBACILLUS RHAMNOSUS GG 1 CAPSULE. PO SCH (08:48)
[2020-04-21] MEDS: CHOLECALCIFEROL (VITAMIN D3) 1,000 UNIT TABLET PO SCH (08:48)
[2020-04-21] MEDS: buPROPion SR 150 MG TABLET.SA PO SCH (08:48)
[2020-04-21] MEDS: GABAPENTIN 300 MG CAPSULE. PO SCH ×3 (08:48→19:39)
[2020-04-21] MEDS: DEXAMETHASONE 4 MG TABLET PO SCH (08:49)
[2020-04-21] MEDS: IPRATROPIUM/ALBUTEROL 20/100mcg/INH INHALER. INH SCH ×4 (08:52→19:41)
[2020-04-21] MEDS: FLUTICASONE 50MCG/NASAL SPRAY 16GM BOTTLE. NS SCH (08:52)
[2020-04-21] MEDS: TRAMETINIB DIMETHYL SULFOXIDE 2 MG PO SCH (09:00)
[2020-04-21] MEDS: VANCOMYCIN PER PHARMACY MC PRN (09:17)
--- NOTE | 2020-04-21 11:51 | RAD ---
EXAM: CT cervical and thoracic spine without contrast INDICATION: Severe pain in neck and upper thoracic area COMPARISON: CTA chest 04/18/2020 TECHNIQUE: Axial CT imaging through cervical spine and thoracic without intravenous contrast. Sagitta l and coronal reformats were obtained. One or more of the following individualized dose reduction techniques were utilized for this examinat ion: 1. Automated exposure control 2. Adjustment of the mA and/or kV according to patient size 3. Use of iterative reconstruction technique. FINDINGS: Cervical spine: There are surgical changes of suboccipital craniectomy and left occipital cranioplast y. Left cerebellar encephalomalacia is noted, likely sequela of old injury. There is no acute fractur e. Alignment is normal. The craniocervical junction and atlantoaxial interval are normal. Disc spaces and facet joints are normal. No canal or foraminal narrowing. Prevertebral soft tissue is normal. CT thoracic spine: There is no acute fracture. Alignment is normal. Disc spaces are maintained. No ca nal or foraminal narrowing. Bilateral dependent consolidations with air bronchograms and small bilate ral pleural effusions have not significantly changed. The lungs are hypoexpanded. Heart is normal in size. The visualized portion of the upper abdomen is unremarkable. Paraspinous musculature is normal. IMPRESSION: 1. No acute osseous abnormality of the cervical or thoracic spine. 2. No significant change in lower lobe consolidations and small pleural effusions. 3. Left cerebellar encephalomalacia and surgical changes of suboccipital craniotomy/cranioplasty. Electronically signed by: Sarah Hernandez MD (04/21/2020 11:49 AM) [id number]
[2020-04-21] MEDS: NALOXEGOL OXALATE 25 MG TABLET. PO SCH (13:31)
--- NOTE | 2020-04-21 19:02 | PN ---
DATE: 04/21/2020 SUBJECTIVE: The patient is resting, slightly propped up in bed, in no apparent respiratory distress. He is complaining of severe pain in his neck and upper thoracic spine radiating to the left shoulder that comes and goes. It is not aggravated by taking a deep breath and is not aggravated by moving his left shoulder. PHYSICAL EXAMINATION: GENERAL: When I examined him, he looked well and was clearly in no apparent respiratory distress. There is no pallor, jaundice, cyanosis or thyromegaly. No jugular venous distention. No limb edema. VITAL SIGNS: His heart rate was 90, blood pressure was 132/98, temperature was 97.9, respiratory rate was 21 and oxygen saturation was 95% on 1.5 liters of oxygen. HEAD, EYES, EARS, NOSE AND THROAT: Showed normocephalic and atraumatic. NECK: Supple. HEART: Showed normal first and second heart sounds. No gallop, rub, or murmur. CHEST: Clear to auscultation. No crepitation or rhonchi. ABDOMEN: Markedly distended, soft, nontender. NEUROLOGIC: He was awake, alert. All his cranial nerves are grossly intact, although has dysarthria and sometimes difficult to understand. He has marked muscle weakness and wasting and cerebellar ataxia. He is mostly bedbound. His intake was 840, output was 1400. LABORATORY DATA: As of this morning, his white cell count was 9400, hemoglobin 12.7, hematocrit 39, MCV 88 and platelet count 224,000. Serum sodium was 140, potassium 4.5, chloride 102, bicarbonate 35, anion gap of 3, BUN 20, creatinine 0.7, estimated GFR was 134. His blood sugar was 112, calcium was 9. Total bilirubin, AST is normal. ALT and alkaline phosphatase slightly elevated. Total protein was 6.7, albumin 2.2. His vancomycin trough level was 13.6. His coronavirus PCR was not detectable. ASSESSMENT: 1. This is a 29-year-old male patient who was admitted with probable aspiration pneumonia versus community-acquired pneumonia. 2. Dysphagia. 3. Hypothyroidism. 4. Bronchial asthma. 5. Glioblastoma multiforme that was resected twice. He is now on chemotherapy and dexamethasone 6. Remote history of medulloblastoma in 2006, treated with resection, chemotherapy and radiation treatment. PLAN: To continue with IV antibiotic. Continue with dexamethasone. I have arranged for him to have a CT scan of the cervical and thoracic spine. We will continue with Flonase and saline nasal spray for his stuffy nose. If all is well, he can be discharged home tomorrow on oral Augmentin. ANGELA DANIELSON MD DR: TIM/renato JOB#: [id number] / [id number]
[2020-04-21] MEDS: diazePAM 5 MG TABLET. PO PRN (19:38)
[2020-04-22 00:14] VITALS: BP 118/86
[2020-04-22] MEDS: ACETAMINOPHEN 325 MG TABLET PO SCH ×4 (04:00→12:00)
[2020-04-22 04:04] VITALS: BP 104/73
[2020-04-22] MEDS: LEVOTHYROXINE 50 MCG TABLET PO SCH (06:08)
[2020-04-22] MEDS: MEROPENEM 1 GM in IV NORMAL SALINE 100ML 100 ML IV SCH (06:08)
[2020-04-22 08:13] VITALS: BP 113/89
[2020-04-22] MEDS: CHOLECALCIFEROL (VITAMIN D3) 1,000 UNIT TABLET PO SCH (08:33)
[2020-04-22] MEDS: GABAPENTIN 300 MG CAPSULE. PO SCH (08:33)
[2020-04-22] MEDS: VITAMIN B COMPLEX CAPSULE. PO SCH (08:33)
[2020-04-22] MEDS: BACLOFEN 10 MG TABLET PO PRN (08:33)
[2020-04-22] MEDS: LACTOBACILLUS RHAMNOSUS GG 1 CAPSULE. PO SCH (08:33)
[2020-04-22] MEDS: buPROPion SR 150 MG TABLET.SA PO SCH (08:33)
[2020-04-22] MEDS: DEXAMETHASONE 4 MG TABLET PO SCH (08:33)
[2020-04-22] MEDS: FOLIC ACID 1 MG TABLET PO SCH (08:33)
[2020-04-22] MEDS: DOCUSATE SODIUM 100 MG CAPSULE PO SCH (08:34)
[2020-04-22] MEDS: traMADol 50 MG TABLET PO PRN (08:34)
[2020-04-22] MEDS: NALOXEGOL OXALATE 25 MG TABLET. PO SCH (08:34)
[2020-04-22] MEDS: IPRATROPIUM/ALBUTEROL 20/100mcg/INH INHALER. INH SCH ×2 (08:35→13:00)
[2020-04-22] MEDS: VANCOMYCIN 1.5 GM in IV NORMAL SALINE 500ML 500 ML IV SCH (08:35)
[2020-04-22] MEDS: TRAMETINIB DIMETHYL SULFOXIDE 2 MG PO SCH (08:35)
[2020-04-22] MEDS: FLUTICASONE 50MCG/NASAL SPRAY 16GM BOTTLE. NS SCH (08:35)
[2020-04-22] MEDS ORDERED: AMOX1TAB61 PO (12:11)
--- NOTE | 2020-04-22 12:20 | DISCH ---
HOME HEALTH DISCHARGE/MEDS DISCHARGE INFORMATION: Discharge Date: Apr 22, 2020 Final Diagnosis: Problems Medical Problems: (1) Glioblastoma Status: Acute (2) Multifocal pneumonia Status: Acute Condition on Discharge: Stable CODE STATUS: Code Status: Full HOME HEALTH: Face to Face: I certify this patient is under my care and that I, or a nurse practitioner or physician's assistant clinical director working with me, had a face to face encounter that meets the physician face to face encounter requirements with this patient on 04/22/2020 Medical Condition(s): Pneumonia Alf For: Medication Management Physical Therapy For: Evalulation/Treatment Occupational Therapy For: Evaluation/Treatment POST DISCHARGE ORDERS: Activity Instructions for Disc: Resume previous activity CERTIFICATION STATEMENT: Certification Statement: Based on the above finding, I certify that this patient is confined to the home and needs intermittent snf care, physical therapy and/or speech therapy, or continues to need occupational therapy.~ This patient is under my care, and I have initiated the establishment of the plan of care.~ This patient will be followed by myself or a community physician who will periodically review the plan of care. DISCHARGE MEDICATIONS: Home Meds Active Scripts Amoxicillin/Potassium Clav (AUGMENTIN 875-125 TABLET) 1 Each Tablet, 1 TAB PO BID for pneumonia for 7 Days, #14 TAB 0 Refills Prov:ANGELA DANIELSON MD 04/22/20 Tramadol Hcl (TRAMADOL HCL) 50 Mg Tablet, 1-2 TAB PO PRN Q6HRS PRN for SEVERE PAIN, #20 TAB 0 Refills Prov:LOGAN GRAY MD 08/11/14 Reported Medications Docusate Sodium (COLACE) 100 Mg Capsule, 1 CAP PO BID for constipation for 30 Days, #60 CAP 0 Refills 04/19/20 Dexamethasone (Decadron) 6 Mg Tablet, 10 MG PO DAILY for ., TAB 04/18/20 Acetaminophen (ACETAMINOPHEN) 325 Mg Tablet, 2 TAB PO PRN Q4-6HRS PRN for pain or fever for 30 Days, #30 TAB 0 Refills 04/18/20 Ipratropium/Albuterol Sulfate (COMBIVENT RESPIMAT INHAL) 4 Gm Aer.w.adap, 1 PUFF INH QID for ., INHALER 04/18/20 Hydrocodone Bit/Acetaminophen (HYDROCODONE-APAP 5-325 ) 1 Each Tablet, 1 TAB PO PRN Q6HRS PRN for PAIN, TAB 0 Refills 04/18/20 Vitamin D3/Folic Acid (Dermacinrx Purefolix Tablet) 5,000 Unit Tablet, 1 TAB PO DAILY for . for 30 Days, #30 TAB 0 Refills 04/18/20 Vitamin B Complex (B COMPLEX) 1 Each Tablet, 1 TAB PO DAILY for . for 30 Days, #30 TAB 0 Refills 04/18/20 Lactobacillus Rhamnosus Gg (CULTURELLE) 1 Each Cap.sprink, 1 CAP PO DAILY for . for 30 Days, #30 CAP 0 Refills 04/18/20 Trametinib Dimethyl Sulfoxide (MEKINIST) 2 Mg Tablet, 2 MG PO DAILY for ., TAB 04/18/20 Levothyroxine Sodium (Levo-T) 50 Mcg Tablet, 1 TAB PO DAILY for . for 30 Days, #30 TAB 0 Refills 04/18/20 Bupropion Hcl (BUPROPION HCL SR) 150 Mg Tablet.er, 1 TAB PO DAILY PRN for ., #60 TAB 5 Refills 04/18/20 Gabapentin (GABAPENTIN) 600 Mg Tablet, 600 MG PO TID for NEUROGENIC PAIN, TAB 04/18/20 Diazepam (DIAZEPAM) 5 Mg Tablet, 5 MG PO PRN QHS PRN for ., TAB 04/18/20 ANGELA DANIELSON MD Apr 22, 2020 12:20
[2020-04-22 12:53] VITALS: BP 133/102
--- NOTE | 2020-04-22 12:53 | DS ---
DATE OF DISCHARGE: HOSPITAL COURSE: The patient is a 29-year-old male patient who was admitted with acute hypoxic respiratory failure and aspiration pneumonia as he has dysphagia. His chest x-ray initially showed bilateral atelectasis; however, CT angio of the chest showed the patient has no evidence of pulmonary emboli; however, he did have multifocal consolidation primarily in the bilateral lower lobes, but also in the right middle lobe and posterior inferior left upper lobe. No pneumothorax or pleural effusion. The patient was started on meropenem and vancomycin. The patient did very well, has been afebrile. His white cell count is normal and trending down. I did a CT scan of the cervix and thoracic spine. He is complaining of severe cervical and thoracic pain, however, showed no evidence of any fracture or other abnormalities. However, he does have bilateral lower lobe consolidation, likely due to atelectasis. As he remained afebrile, hemodynamically stable with normal white cell count, a decision was made to discharge him home to complete treatment with oral Augmentin 875 mg twice a day for 7 more days. He will be also discharged to continue on all his other medications. PHYSICAL EXAMINATION: GENERAL: When I saw him this morning, he looked well and was clearly in no apparent respiratory distress. No pallor, jaundice, cyanosis or thyromegaly. No jugular venous distention. No lower limb edema. VITAL SIGNS: His heart rate was 89, blood pressure was 104/73, temperature was 98.6, respiratory rate was 20, and oxygen saturation was 93% on 1 liter of oxygen. HEAD, EYES, EARS, NOSE AND THROAT: Showed normocephalic, atraumatic. NECK: Supple. HEART: Showed normal first and second heart sounds. No gallop or murmur. CHEST: Clear to auscultation. No crepitation or rhonchi. ABDOMEN: Distended, soft, nontender. NEUROLOGIC: He was awake, alert. He does have some dysarthria and marked muscle weakness and cerebellar ataxia. He is mostly bedbound, chair bound. LABORATORY DATA: Showed a white cell count of 9400, hemoglobin 13, hematocrit 39, MCV 88 and platelet count 224,000. His chemistry showed a serum sodium of 140, potassium 4.5, chloride 102, bicarbonate 35, anion gap of 3, BUN 20, creatinine 0.7, estimated GFR was 134 mL per minute. His glucose was 112, calcium was 9. Total bilirubin, AST, ALT, alkaline phosphatase slightly elevated. Total protein 6.7, albumin 2.2. His coronavirus by PCR was negative. DISCHARGE MEDICATIONS: The patient will be discharged home to continue on amoxicillin/potassium clavulanic acid for Augmentin one tablet twice a day with meals for 7 days, Tylenol 650 mg every 4-6 hours, Wellbutrin 150 mg daily, dexamethasone for Decadron 10 mg daily. He is on diazepam 5 mg at bedtime, Colace 100 mg twice a day, gabapentin 600 mg 3 times a day, hydrocodone/APAP 5/325 one tablet every 6 hours, ipratropium bromide and albuterol sulfate for Combivent Respimat 1 puff 4 times a day, lactobacillus rhamnosus 1 capsule twice a day, levothyroxine sodium 50 mcg once a day, tramadol 50 mg 1-2 tablets every 6 hours. He is also on Mekinist 2 mg daily, vitamin B complex one tablet once a day, vitamin D plus folic acid 1 tablet once a day. FINAL DISCHARGE DIAGNOSES: 1. Aspiration pneumonia. 2. Acute hypoxic respiratory failure. 3. Dysphagia. 4. Hypothyroidism. 5. Bronchial asthma. 6. Glioblastoma multiforme that was resected twice. He is now on chemotherapy and dexamethasone. 7. Remote history medulloblastoma in 2005, treated with resection, chemotherapy and radiation treatment. ANGELA DANIELSON MD DR: TIM/renato JOB#: [id number] / [id number]
== END 2020-04-22 15:15 | disposition home health service (06) | DRG 177 ==
LOC: ER 14:28 → INTOOBSV 16:55 → ICU 16:55 → OBSVTOIN 16:55
PROVIDERS: ADMIT Internal Medicine; ATTEND Internal Medicine
DX: J69.0 Pneumonitis due to inhalation of food and vomit (principal); J96.01 Acute respiratory failure with hypoxia; C71.6 Malignant neoplasm of cerebellum; I31.3 Pericardial effusion (noninflammatory); J98.11 Atelectasis; E03.9 Hypothyroidism, unspecified; J45.909 Unspecified asthma, uncomplicated; K59.00 Constipation, unspecified; R13.10 Dysphagia, unspecified; Z80.8 Family history of malignant neoplasm of other organs or systems; Z85.841 Personal history of malignant neoplasm of brain; Z92.21 Personal history of antineoplastic chemotherapy; Z92.3 Personal history of irradiation; F32.9 Major depressive disorder, single episode, unspecified; Z20.828 Contact with and (suspected) exposure to other viral communicable diseases; Z88.8 Allergy status to other drugs, medicaments and biological substances; Z79.899 Other long term (current) drug therapy
CPT/HCPCS: 36415; 71045; 71275; 72125; 72128; 80048; 80053; 80202; 83605; 83735; 83880; 84484; 85025; 85027; 87040; 90686; 92610; 93005; J2185; J2543; J2930; J3370; J3475; J7030; J7040; J8540; Q9967; U0003

== ENCOUNTER 2020-04-28 15:07 | Inpatient (IN) | payer BC ==
[~2020-04-28] VITALS: Ht 185.4 cm; Wt 90.1 kg
[~2020-04-28 15:07] MED LIST changes: +ACET325T21 PO; +AMOX1TAB61 PO; +BUPR150T11 PO; +DEXA6TAB6 PO; +DIAZ5TAB4 PO; +DOCU-109 PO; +GABA600T7 PO; +HYDR-2155 PO; +IPRA4AER INH; +LACT1CAP19 PO; +LEVO50TA72 PO; +TRAM2TAB PO; +VITA1TAB19 PO; +VITA50004 PO
[2020-04-28] MEDS ORDERED: IV RINGERS SOLUTION,LACTATED 1,000 ML IV SCH (15:15)
--- NOTE | 2020-04-28 15:23 | PHYS DOC ---
Past History Past Medical History: Asthma, Depression, Other Additional Past Medical Histor: Glioblastoma Past Surgical History: Cancer Surgery Alcohol Use: None Drug Use: None Adult General Chief Complaint Chief Complaint: SHORTNESS OF BREATH HPI HPI Patient is a 29M with past medical history of glioblastoma diagnosed years ago and recent diagnosis of pneumonia released from our hospital approximately 1 week ago now presents emergency department due to concern for failure to thrive and new onset of pain. Father states that since he has been home he has been complaining of worsening pain in the left shoulder as well as bilateral ribs. States that this appears to happen whenever he is transition removed. Also feel that at home they have not had access to the proper medical equipment and have not gone to hospital bed is a previously requested. Patient also has been noted to have all increased work of breathing and decreased respiratory drive over the last week. Denies any new fever, cough or nasal congestion Review of Systems Review of Systems Constitutional: Denies fever or chills [] Eyes: Denies change in visual acuity, redness, or eye pain [] HENT: Denies nasal congestion or sore throat [] Respiratory: Denies cough or shortness of breath [] Cardiovascular: No additional information not addressed in HPI [] GI: Denies abdominal pain, nausea, vomiting, bloody stools or diarrhea [] : Denies dysuria or hematuria [] Musculoskeletal: Denies back pain or joint pain [] Integument: Denies rash or skin lesions [] Neurologic: Denies headache, focal weakness or sensory changes [] Endocrine: Denies polyuria or polydipsia [] All other systems were reviewed and found to be within normal limits, except as documented in this note. Current Medications Current Medications Current Medications Medications (Trade) Dose Ordered Sig/Puma Start Time Stop Time Status Last Admin Dose Admin Lactated Ringer's 1,000 ml @ 1,000 mls/hr Q1H 04/28/20 15:15 04/28/20 16:14 UNV Allergies Allergies Allergies Coded Allergies Type Severity Reaction Last Updated Verified cefaclor Allergy Intermediate Hives 04/18/20 Yes Physical Exam Physical Exam Constitutional: moderately disheveled in appearance, no acute distress, non- toxic appearance. [] HENT: Normocephalic, atraumatic, bilateral external ears normal, oropharynx moist, no oral exudates, nose normal. [] Eyes: PERRLA, EOMI, conjunctiva normal, no discharge. [] Neck: Normal range of motion, no tenderness, supple, no stridor. [] Cardiovascular:Heart rate regular rhythm, no murmur [] Lungs & Thorax: Bilateral breath sounds clear to auscultation [] Abdomen: Bowel sounds normal, soft, no tenderness, no masses, no pulsatile masses. [] Skin: Warm, dry, no erythema, no rash. [] Back: No tenderness, no CVA tenderness. [] Extremities: No tenderness, no cyanosis, no clubbing, ROM intact, no edema.L shoulder tenderness Neurologic: Alert and oriented X 3, delayed motor function and R facial droop, no new or acute deficits Psychologic: Affect normal, judgement normal, mood normal. [] Heart Score Risk Factors: Risk Factors: DM, Current or recent (<one month) smoker, HTN, HLP, family history of CAD, obesity. Risk Scores: Risk Factors: DM, Current or recent (<one month) smoker, HTN, HLP, family his tory of CAD, obesity. Course & Med Decision Making Course & Med Decision Making Pertinent Labs and Imaging studies reviewed. (See chart for details) 29-year-old male with a known past medical history glioblastoma presenting with nonspecific symptoms which include mild localized pain, generalized fatigue and decreased respiratory drive. This does raise concern for failure to thrive but there is also concern for recurrence of pneumonia or spread of the patient's metastases. At this time will obtain labs, x-ray of the chest and shoulder and reevaluate. 17:06 -labs and x-ray obtained which do demonstrate what appears to be ongoing pneumonia which could be a viral or bacterial pneumonia. There are some concern for COVID-19 infection as well for this patient. At this time we will plan for admission to the hospital and start on IV antibiotics. Dragon Disclaimer Dragon Disclaimer This electronic medical record was generated, in whole or in part, using a voice recognition dictation system. Departure Departure: Impression: Primary Impression: Community acquired pneumonia Referrals: KATELIN FRANK (PCP) BRAD FLORES MD Apr 28, 2020 15:23
--- NOTE | 2020-04-28 15:51 | RAD ---
EXAM: CHEST 1 VIEW History: Chest pain COMPARISON: 04/18/2020 TECHNIQUE: Single portable radiograph of the chest FINDINGS: Low lung volumes and technique accentuates heart and pulmonary vascular identified. Mild b ibasilar lung airspace opacities likely atelectasis or infiltrates. Probable trace left pleural effus ion unchanged. IMPRESSION: Mild bibasilar lung airspace opacities likely atelectasis or infiltrates with probable t race left pleural effusion. Electronically signed by: Durga Estrada MD (04/28/2020 3:49 PM) [id number]
--- NOTE | 2020-04-28 15:59 | RAD ---
Examination: 2 views of the left shoulder HISTORY: History of pain COMPARISON: None available FINDINGS: The humerus head is within the glenoid. There is no acute fracture or dislocation identified. Mild le ft lung base airspace opacities likely atelectasis or infiltrate with trace left pleural effusion. IMPRESSION: No acute osseous findings. Electronically signed by: Durga Estrada MD (04/28/2020 3:57 PM) [id number]
[2020-04-28 16:05] LABS: BASO # 0.1 x10^3/uL (0.0-0.2); BASO % 0 % (0-3); EOS % 0 % (0-3); HEMOGLOBIN 13.7 g/dL (13.0-17.5); LYMPH # 1.6 x10^3/uL (1.0-4.8); LYMPH % 12 % (24-48); MEAN CORPUSCULAR HEMOGLOBIN 28 pg (25-35); MEAN CORPUSCULAR HGB CONC 32 g/dL (31-37); MEAN CORPUSCULAR VOLUME 88 fL (79-100); MONO # 0.5 x10^3/uL (0.0-1.1); MONO % 4 % (0-9); NEUT # 11.4 x10^3uL (1.8-7.7); NEUT % 84 % (31-73); PLATELET COUNT 371 x10^3/uL (140-400); RED BLOOD COUNT 4.89 x10^6/uL (4.30-5.70); RED CELL DISTRIBUTION WIDTH 17.6 % (11.5-14.5); WHITE BLOOD COUNT 13.6 x10^3/uL (4.0-11.0)
[2020-04-28 16:12] LABS: CALCIUM 9.4 mg/dL (8.5-10.1); CREATININE 0.8 mg/dL (0.7-1.3); GFR 115.1; POTASSIUM 4.3 mmol/L (3.5-5.1)
[2020-04-28 16:19] LABS: ALBUMIN 2.3 g/dL (3.4-5.0); ALBUMIN/GLOBULIN RATIO 0.5 (1.0-1.7); TOTAL BILIRUBIN 0.2 mg/dL (0.2-1.0)
[2020-04-28] MEDS ORDERED: QUEtiapine 50 MG TABLET. PO ONE (17:00)
[2020-04-28] MEDS ORDERED: AZITHROMYCIN 500 MG in IV NORMAL SALINE 250ML 250 ML IV ONE (17:00)
[2020-04-28] MEDS ORDERED: ONDANSETRON PF 4 MG/2 ML VIAL. IVP PRN (17:15)
[2020-04-28] MEDS ORDERED: cefTRIAXone SODIUM 1 GM VIAL ONE (17:21)
[2020-04-28] MEDS ORDERED: IV NORMAL SALINE 250ML 250 ML ONE (17:21)
[2020-04-28] MEDS ORDERED: IV NORMAL SALINE 50ML 50 ML ONE (17:21)
[2020-04-28] MEDS ORDERED: AZITHROMYCIN 500 MG VIAL. IV ONE (17:21)
[2020-04-28] MEDS ORDERED: GLYCERIN ADULT 1 SUPP.RECT. ONE (18:33)
[2020-04-28] MEDS ORDERED: GLYCERIN ADULT 1 SUPP.RECT. PR ONE (18:45)
--- NOTE | 2020-04-28 19:00 | NUR ---
The patient, DWAYNE NUÑEZ, 29 y/o, M admitted by SONIA PALMER MD, was given written information regarding hospital policies, unit procedures and contact persons. Valuables were checked and documented. Pts vitals were taken, pt is currently on 15L non rebreather mask due to anxiety attack in Emergency Room before admission. Pt is calm and cooperative. pt does have expressive aphasia difficult to understand at times. Dad has been given the OK to stay with the pt in his room during the pts stay. Pt has complaints of pain in left should tramadol given per order. Dr was called to continue pts medications and an order was received to test pt for covid 19. Order was already in place from ED but pt was not swobbed in ED. Pt has been resting in bed will continue to monitor.
[2020-04-28 19:30] VITALS: BP 156/112
[2020-04-28] MEDS ORDERED: ACETAMINOPHEN 325 MG TABLET PO PRN (19:45)
[2020-04-28] MEDS ORDERED: diazePAM 5 MG TABLET. PO PRN (19:45)
[2020-04-28] MEDS ORDERED: traMADol 50 MG TABLET PO PRN (19:45)
[2020-04-28] MEDS ORDERED: IPRATRPIUM/ALBUTEROL 0.5/2.5MG 3 ML NEBU. NEB SCH (20:00)
[2020-04-28] MEDS: GABAPENTIN 300 MG CAPSULE. PO SCH (20:01)
[2020-04-28] MEDS: DOCUSATE SODIUM 100 MG CAPSULE PO SCH (20:02)
[2020-04-28] MEDS: traMADol 50 MG TABLET PO PRN (20:34)
[2020-04-28] MEDS ORDERED: NON FORMULARY ITEM (Ipratropium/Albuterol Sulfate (Combivent Respimat Inhal) 1 PUFF) INH SCH (21:00)
[2020-04-28] MEDS: IPRATROPIUM/ALBUTEROL 20/100mcg/INH INHALER. INH SCH (21:00)
[2020-04-28 21:55] LABS: % BANDS 5 % (0-9); % EOS 1 % (0-5); % LYMPHS 16 % (24-48); % MONOS 8 % (0-10); % SEGS 70 % (35-66)
[2020-04-28 21:56] LABS: PLT ESTIMATE ADEQUATE (ADEQUATE)
[2020-04-28 23:00] VITALS: BP 129/101
[2020-04-29] VITALS (7 sets, daily range): BP systolic 101–134; BP diastolic 58–95
[2020-04-29] MEDS: traMADol 50 MG TABLET PO PRN (02:32)
[2020-04-29] MEDS: MORPHINE SULFATE 2 MG/ML DISP.SYRIN. IVP PRN ×3 (02:33→09:57)
[2020-04-29] MEDS: LEVOTHYROXINE 50 MCG TABLET PO SCH (05:27)
[2020-04-29] MEDS: GABAPENTIN 300 MG CAPSULE. PO SCH ×3 (06:58→20:33)
[2020-04-29] MEDS: IPRATROPIUM/ALBUTEROL 20/100mcg/INH INHALER. INH SCH ×4 (06:58→20:33)
[2020-04-29] MEDS: DOCUSATE SODIUM 100 MG CAPSULE PO SCH ×2 (06:59→20:33)
[2020-04-29] MEDS: LACTOBACILLUS RHAMNOSUS GG 1 CAPSULE. PO SCH (07:01)
[2020-04-29] MEDS: FOLIC ACID 1 MG TABLET PO SCH (07:01)
[2020-04-29] MEDS: VITAMIN B COMPLEX CAPSULE. PO SCH (07:02)
[2020-04-29] MEDS: buPROPion SR 150 MG TABLET.SA PO SCH (07:02)
[2020-04-29] MEDS: CHOLECALCIFEROL (VITAMIN D3) 1,000 UNIT TABLET PO SCH (07:04)
[2020-04-29 07:42] LABS: BASO % 0 % (0-3); EOS % 0 % (0-3); HEMOGLOBIN 12.8 g/dL (13.0-17.5); LYMPH # 2.1 x10^3/uL (1.0-4.8); LYMPH % 18 % (24-48); MEAN CORPUSCULAR HEMOGLOBIN 28 pg (25-35); MEAN CORPUSCULAR HGB CONC 32 g/dL (31-37); MEAN CORPUSCULAR VOLUME 87 fL (79-100); MONO # 0.5 x10^3/uL (0.0-1.1); MONO % 5 % (0-9); NEUT # 9.1 x10^3uL (1.8-7.7); NEUT % 77 % (31-73); PLATELET COUNT 339 x10^3/uL (140-400); RED BLOOD COUNT 4.58 x10^6/uL (4.30-5.70); RED CELL DISTRIBUTION WIDTH 17.5 % (11.5-14.5); WHITE BLOOD COUNT 11.8 x10^3/uL (4.0-11.0)
[2020-04-29 07:55] LABS: ALBUMIN/GLOBULIN RATIO 0.5 (1.0-1.7); CALCIUM 8.8 mg/dL (8.5-10.1); CREATININE 0.7 mg/dL (0.7-1.3); GFR 134.3; POTASSIUM 4.2 mmol/L (3.5-5.1); TOTAL BILIRUBIN 1.1 mg/dL (0.2-1.0); TOTAL PROTEIN 6.2 g/dL (6.4-8.2)
[2020-04-29] MEDS ORDERED: DEXAMETHASONE 4 MG TABLET PO SCH (08:00)
[2020-04-29] MEDS ORDERED: VITAMIN D3 PO SCH (09:00)
[2020-04-29] MEDS ORDERED: FOLIC ACID PO SCH (09:00)
[2020-04-29] MEDS ORDERED: MORPHINE SULFATE 4 MG/ML DISP.SYRIN. ONE (09:55)
[2020-04-29] MEDS ORDERED: fentaNYL 50MCG/HR 1 PATCH PATCH TD SCH (10:00)
--- NOTE | 2020-04-29 10:01 | HP ---
ADMIT DATE: 04/28/2020 ATTENDING PHYSICIAN: Sonia Palmer MD. CHIEF COMPLAINT: Weakness and chronic pain. HISTORY OF PRESENT ILLNESS: The patient is a 29-year-old gentleman who is a little more than a year out from diagnosis of glioblastoma multiforme. He has been on Decadron. He was hospitalized here just last week and sent home. Unfortunately, the family is very distraught. He is only 29 years old. They have been dealing with this for over a year now. He is actively dying. He is admitted then for further management and comfort issues. PAST MEDICAL HISTORY: Significant for multiple aspiration pneumonia, respiratory failure, hypoxemia and glioblastoma multiforme. He also had a medulloblastoma at age 15, which was resected. It is a second metachronous malignancy. CURRENT MEDICINES: Reviewed. ALLERGIES: HE HAS ALLERGIES TO CEFACLOR. CURRENT MEDICATIONS: Include Tylenol, bupropion, Decadron 10 mg daily, Valium, docusate, Neurontin, hydrocodone, ipratropium, lactobacillus, Synthroid, tramadol, trimethoprim, sulfa, vitamin B and vitamin D. SOCIAL HISTORY: Nonsmoker, nondrinker. He is disabled. He has been cared for by his mom and dad. REVIEW OF SYSTEMS: Significant for the recent admission with pneumonia, failure to thrive, significant debilitation, chronic pain, diffuse and constipation. The rest of detailed review of systems turned to be negative. PHYSICAL EXAMINATION: GENERAL: When I saw him, this is a debilitated gentleman, who was at bed rest and nonambulatory. INITIAL VITAL SIGNS: Showed a blood pressure 119/58, pulse is 77 and regular, oxygen saturation 15 liters nonrebreather to maintain 90% saturation. He is afebrile. HEENT: Head is without trauma. Pupils are reactive. Face is cushingoid. The oropharynx is clear. Mucous membranes dry. No stridor. NECK: Supple. No stridor or thyromegaly. LUNGS: Shallow respirations. CARDIOVASCULAR: Showed distant heart tones. No gallops. ABDOMEN: Soft, scaphoid, nontender. EXTREMITIES: Show 2+ pitting edema. NEUROLOGIC: The patient is lethargic. He is responsive to some questions. He is nonambulatory. Vineyardist are weak and slightly asymmetric with weakness on the right side. PERTINENT LABORATORY STUDIES: Hemoglobin is 12.8 g/dL with a white count of 11,800. Electrolytes: Sodium is 142 mEq, creatinine is 0.7 mg percent, potassium 4.3 mEq, nonfasting blood sugar 104. Transaminases slightly elevated. IMAGING: Chest x-ray in the ED showed bibasilar airspace opacities consistent with atelectasis and small left pleural effusion identified. ASSESSMENT: 1. This 29-year-old gentleman. He has glioblastoma multiforme that is end-stage. He is actively dying. 2. [id number] respiratory failure with history of aspiration. 3. Chronic pain syndrome. 4. Rule out COVID-19 pneumonia. He is a person under investigation. 5. History of narcotic-related constipation. PLAN: 1. Admit to the hospital. 2. Comfort measures. 3. I have added a Duragesic patch along with his intravenous morphine for breakthrough pain. 4. Long discussion with the family and nurse licensed practical, his mom and dad, to consider hospice care. 5. Await coronavirus swab. SONIA PALMER MD DR: MANOJ/renato JOB#: [id number] / [id number] KATELIN Mendoza
[2020-04-29] MEDS ORDERED: LABETALOL 20 MG/4 ML DISP.SYRIN. ONE (12:15)
[2020-04-29] MEDS: IV NORMAL SALINE 1,000ML 1,000 ML IV SCH (12:20)
[2020-04-29] MEDS: LABETALOL 20 MG/4 ML DISP.SYRIN. IVP PRN ×3 (12:21→19:35)
--- NOTE | 2020-04-29 13:30 | NUR ---
DR PALMER NOTIFIED OF PATIENTS CONTINUED DECLINE IN STATUS. REQUESTED VTE PROPHYLAXIS SINCE PATIENT IS IMMOBILE. DR PALMER STATED PT DID NOT NEED VTE PROPHYLAXIS.
--- NOTE | 2020-04-29 14:10 | NUR ---
DR PALMER NOTIFIED OF PATIENTS DECREASING 02 SATS REGARDLESS OF INCREASING PTS 02. PT NOW REQUIRING 15L ON THE HIGH FLOW NC TO MAINTAIN O2 SATS AT 89%. PT IS LETHARGIC, LOCALIZES TO PAIN. PT HAS HAD LITTLE URINE OUTPUT ON THIS SHIFT. DR PALMER BELIEVES THAT PTS RESPIRATORY STATUS IS RELATED TO MORPHINE PT RECEIVED EARLIER IN THIS SHIFT. PTS FAMILY APPROACHED ABOUT MAKING PT A DNR PT HAS TERMINAL CANCER DIAGNOSIS. PT IS RESTING COMFORTABLY IN BED AT THIS TIME. WILL CONTINUE TO MONITOR.
--- NOTE | 2020-04-29 16:05 | NUR ---
FENTANYL PATCH REMOVED PER MOTHERS REQUEST.
--- NOTE | 2020-04-29 19:00 | NUR ---
DISCUSSED PLAN OF CARE WITH PTS MOTHER AND FATHER AND DR PALMER PT IS CONTINUING TO DECLINE AND REQUIRE MORE RESPIRATORY SUPPORT. DR PALMER IS AGREEABLE TO TRANSFERRING PT TO [facility]. PATIENTS FAMILY ASKED TO DISCUSS PLAN TO MAKE DECISION. REPORTED TO ONCOMING RN.
--- NOTE | 2020-04-29 19:28 | NUR ---
ASSUMED CARE OF PT. MOTHER AND FATHER REMAIN AT BEDSIDE. AFTER LONG DISCUSSION, FAMILY NO LONGER WISHES TO TRANSFER. THEY WOULD LIKE TO CHANGE PT'S CODE STATUS TO DNR. DR. PALMER NOTIFIED AND DNR ORDER RECEIVED. WILL CONSULT MEDICAL INSTRUMENT CABLE FABRICATOR IN AM.
--- NOTE | 2020-04-29 22:35 | NUR ---
PT IS DIFFICULT TO ROUSE. HS MEDS NON-ADMINISTERED.
[2020-04-30] MEDS: IV NORMAL SALINE 1,000ML 1,000 ML IV SCH (01:44)
[2020-04-30] MEDS: LEVOTHYROXINE 50 MCG TABLET PO SCH (04:52)
--- NOTE | 2020-04-30 05:06 | NUR ---
PT MORE AWAKE THIS AM. ABLE TO TAKE SYNTHROID WHOLE WITH THICKENED WATER. PT AND FAMILY DECLINING MEDS FOR PAIN AT THIS TIME. PT REPOSITIONED Q2HRS THROUGH THE NIGHT FOR MAXIMAL COMFORT. STILL REQUIRING NRB AT 15L TO KEEP SATS 88-92%.
[2020-04-30 05:19] VITALS: BP 129/90
[2020-04-30 07:25] VITALS: BP 127/91
[2020-04-30 07:40] VITALS: BP 127/91
[2020-04-30] MEDS: LABETALOL 20 MG/4 ML DISP.SYRIN. IVP PRN (07:40)
[2020-04-30] MEDS: GABAPENTIN 300 MG CAPSULE. PO SCH (07:41)
[2020-04-30] MEDS: HYDROcodone/APAP 5/325MG 1 TAB TABLET PO PRN ×2 (07:41→08:41)
[2020-04-30] MEDS: buPROPion SR 150 MG TABLET.SA PO SCH (07:41)
[2020-04-30] MEDS: DOCUSATE SODIUM 100 MG CAPSULE PO SCH (07:42)
[2020-04-30] MEDS: LACTOBACILLUS RHAMNOSUS GG 1 CAPSULE. PO SCH (07:42)
[2020-04-30] MEDS: IPRATROPIUM/ALBUTEROL 20/100mcg/INH INHALER. INH SCH (07:42)
[2020-04-30] MEDS: VITAMIN B COMPLEX CAPSULE. PO SCH (08:00)
[2020-04-30] MEDS: FOLIC ACID 1 MG TABLET PO SCH (08:00)
[2020-04-30] MEDS ORDERED: DEXAMETHASONE SOD PHOS 10 MG/ML VIAL. IV SCH (08:00)
[2020-04-30] MEDS: CHOLECALCIFEROL (VITAMIN D3) 1,000 UNIT TABLET PO SCH (08:00)
[2020-04-30] MEDS: MORPHINE SULFATE 2 MG/ML DISP.SYRIN. IVP PRN (10:22)
--- NOTE | 2020-04-30 11:55 | DS ---
DATE OF DISCHARGE: 04/30/2020 ATTENDING PHYSICIAN: Dr. Palmer. FINAL DISCHARGE DIAGNOSES: 1. Acute on chronic respiratory failure. 2. Frequent aspiration pneumonia. 3. End-stage glioblastoma multiforme. 4. Chronic pain syndrome. 5. Narcotic related constipation. HISTORY OF PRESENT ILLNESS: The patient is a 29-year-old gentleman who has a diagnosis of glioblastoma multiforme diagnosed about a year and a half ago. He is at the terminal end of treatment. Multiple therapies, surgeries, chemotherapy, immunotherapy and clinical trials have not shown to be effective. Family could not care for him at home. He was recently hospitalized with aspiration pneumonia, released just before . PHYSICAL EXAMINATION: Please see the dictated note. PERTINENT LABORATORY AND X-RAY STUDIES: Please refer to the extensive database. Hemoglobin is 13.7 g, white count 13,600. Electrolytes within normal range. Nonfasting blood sugar 141. Transaminases slightly elevated. IMAGING STUDIES: Chest and shoulder x-rays on the database. COURSE IN THE HOSPITAL: The patient was admitted for comfort measures, empiric antibiotics. We did do a COVID swab. Family was notified. We continued Decadron and home medications. He became progressively worse, requiring higher level of supplemental oxygen. Eventually, the family elected to go with full hospice. On the third hospital day, the patient was discharged to inpatient hospice at [facility]. They will arrange for comfort measures, morphine and oxygen. We stopped all his other scheduled meds for now. Therefore, he was discharged from our acute care to inpatient hospice care. His prognosis is terminal. TOTAL DISCHARGE TIME: 41 minutes. SONIA PALMER MD DR: MANOJ/renato JOB#: [id number] / [id number] KATELIN Mendoza
== END 2020-04-30 11:44 | disposition hospice, inpatient (51) | DRG 189 ==
LOC: ER 15:07 → ICU 17:15
PROVIDERS: ADMIT Hospitalist; ATTEND Hospitalist
DX: J96.20 Acute and chronic respiratory failure, unspecified whether with hypoxia or hypercapnia (principal); J69.0 Pneumonitis due to inhalation of food and vomit; C71.9 Malignant neoplasm of brain, unspecified; G89.4 Chronic pain syndrome; J45.909 Unspecified asthma, uncomplicated; K59.03 Drug induced constipation; T40.605A Adverse effect of unspecified narcotics, initial encounter; Y92.89 Other specified places as the place of occurrence of the external cause; Z20.828 Contact with and (suspected) exposure to other viral communicable diseases; Z51.5 Encounter for palliative care; F32.9 Major depressive disorder, single episode, unspecified; Z88.8 Allergy status to other drugs, medicaments and biological substances
CPT/HCPCS: 36415; 71045; 73030; 80053; 82550; 85007; 85025; 85610; 96361; 96365; 96366; 96375; J0456; J0696; J1100; J2060; J2270; J3010; J3490; J7050; J7120; J8540; U0003; 99285-25; J7030

== ENCOUNTER 2020-04-30 11:28 | Inpatient (IN) | payer OTHER ==
[2020-04-30 12:21] VITALS: BP 126/78
[2020-04-30] MEDS ORDERED: ACETAMINOPHEN 650 MG SUPP.RECT. PR PRN (12:30)
[2020-04-30] MEDS ORDERED: BISACODYL 10 MG SUPP.RECT PR PRN (12:30)
--- NOTE | 2020-04-30 12:38 | NUR ---
Patient admitted as inpatient hospice with [facility]. Only patient belongings involves a sound machine brought in by family. Patient is stable at this time on 15L per non-rebreather mask. Family is at bedside and voices understanding of plan of care. No concerns noted at this time. Will continue to monitor.
[2020-04-30] MEDS: IV NORMAL SALINE 1,000ML 1,000 ML IV SCH (13:00)
[2020-04-30] MEDS: MORPHINE SULFATE 30 MG/30 ML 30 ML IV PRN (13:40)
[2020-04-30] MEDS: ATROPINE 1% OPHTH SOLUTION 5ML BOTTLE. SL PRN (17:17)
--- NOTE | 2020-04-30 23:30 | NUR ---
At shift change, pt unresponsive & somnolent in bed with MANAGER FILE gtt running at 2mg/hr, pt on [facility] for Com[facility]. Multiple family members at bedside along with Mother & Father during 1st half on shift. Family seemed to enjoy visit and verbalized understanding of POC. VS assessed and stable except for elevated HR 140's. Pt remained on O2at 15L,with sat at 93%. Pt more arousable to verbal stimuli for a few minutes after being turned. Pt even open eyes for a few seconds and was able to nod head to questions. PRN Ativan was refused by family. Two fold out cots pulled up next to bed so both parents could sleep next to pt, very appreciative.
[2020-04-30 23:56] VITALS: BP 134/90
[2020-05-01] MEDS: MORPHINE SULFATE 30 MG/30 ML 30 ML IV PRN ×2 (00:15→13:56)
[2020-05-01] MEDS: IV NORMAL SALINE 1,000ML 1,000 ML IV SCH (02:20)
--- NOTE | 2020-05-01 05:50 | NUR ---
Pt remained somnolent in bed with REFUELING RAMPMAN gtt running at 2mg/hr as family request. Pt received no PRN Ativan per family request. Mother & Father remained at bedside during night. Pt occasionally more arousable to light touch and verbal stimuli, will open eyes for a few seconds then fall back asleep.
[2020-05-01 07:41] VITALS: BP 123/80
[2020-05-01] MEDS ORDERED: DEXAMETHASONE SOD PHOS 10 MG/ML VIAL. IV ONE (09:00)
--- NOTE | 2020-05-01 10:46 | NUR ---
PATIENT IS IN A BED , SOMNOLENT UPON ASSESSMENT THIS AM, AROUSABLE TO NAME OR TOUCH. PATIENT HAD FEVER 100.3, TYLENOL SUPP OFFERED, BOTH PARENTS AT THE BED SIDE, AGREED TO HAVE TYLENOL FOR THE PATIENT. PARENTS ALSO REQUESTED ATIVAN FOR THE PATIENT FOR COMFORT. ATIVAN GIVEN ORDERED TO PROMOTE REST. FATHER SPOKE WITH THIS RN ABOUT HAVING ANTIBIOTIC ORDER FOR THE PATIENT. THIS RN SPOKE WITH [facility] NURSE BRIAN WHO STATED HE WILL ADDRESS THIS REQUEST TO DR. DANIELSON.
--- NOTE | 2020-05-01 13:16 | NUR ---
PATIENT IS UNRESPONSIVE AND IS ON NON REBREATHER AT 15L OF O2. PATIENT IS GASPING AT TIMES, THIS RN SPOKE TO PARENTS ABOUT INCREASING MORPHINE UP TO 3 MG/HR TO DECREASE AIR HUNGER. FATHER VERBALIZED AGREEMENT AND UNDERSTANDING. MORPHINE INCREASED UP TO 3 MG/HR ORDERED. WILL CONTINUE TO MONITOR.
[2020-05-01] MEDS: ATROPINE 1% OPHTH SOLUTION 5ML BOTTLE. SL PRN (14:39)
[2020-05-01] MEDS: MORPHINE SULFATE 4 MG/ML DISP.SYRIN. IV PRN ×2 (14:54→15:58)
[2020-05-01] MEDS ORDERED: SCOPOLAMINE 1.5MG PATCH. TD SCH (15:00)
--- NOTE | 2020-05-01 15:16 | HP ---
ADMIT DATE: 05/01/2020 HISTORY OF PRESENT ILLNESS: The patient is a 29-year-old male patient who is known to have glioblastoma multiforme diagnosed about 2 years ago. It has been resected twice and has been on Decadron. He was hospitalized recently for pneumonia, likely aspiration and was discharged home on palliative care team. Apparently, the family had been dealing with this for over a year now and he is not doing very well and therefore, the patient was admitted to [facility] and to acute care and eventually was admitted to inpatient hospice and was started on morphine drip. PAST MEDICAL HISTORY: Significant for aspiration pneumonia, respiratory failure with hypoxia, glioblastoma multiforme. He has also history of medulloblastoma the age of 15. PAST SURGICAL HISTORY: Significant for multiple surgical resections of medulloblastoma as well as his glioblastoma. Has no other surgeries. ALLERGIES: ALLERGIC TO CEFACLOR. PHYSICAL EXAMINATION: GENERAL: When I saw him this afternoon, he was in infusion pump that has malfunctioned, but he is clearly gasping for breath. He is unresponsive. There is no pallor, jaundice, cyanosis or thyromegaly. No jugular venous distention. No limb edema. VITAL SIGNS: His heart rate was 90, blood pressure was 133/103, temperature was 98.6, respiratory rate was 17 and oxygen saturation was 93% on nonrebreather mask. HEAD, EYES, EARS, NOSE AND THROAT: Normocephalic, atraumatic. NECK: Supple. HEART: Normal first and second heart sounds. No gallop, rub or murmur. CHEST: Shows central trachea, equal bilateral chest expansion, air entry with bilateral crepitation. Few scattered rhonchi. ABDOMEN: Distended, soft, nontender. NEUROLOGIC: He is encephalopathic. ASSESSMENT: 1. Acute on chronic hypoxic respiratory failure. 2. Frequent aspiration pneumonia. 3. End-stage glioblastoma multiforme. 4. Chronic pain syndrome. 5. Opioid-induced constipation. PLAN: Continue with comfort care. He is now on morphine 4 mg IV every hour. He is on Ativan 2 mg every 4 hours. He is on scopolamine 1.5 mg topically every 72 hours, Tylenol 650 mg every 6 hours, bisacodyl 10 mg rectally daily p.r.n. for constipation. ANGELA DANIELSON MD DR: TIM/renato JOB#: [id number] / [id number]
--- NOTE | 2020-05-01 18:28 | NUR ---
THIS RN WENT TO THE PATIENT ROOM WITH PRIMER ASSEMBLER,PATIENT WAS UNRESPONSIVE,NO BREATH SOUNDS NOTED, NO HEARTBEAT FOR TWO MINUTES, NO RESPONSE TO VERBAL OR TACTILE STIMULI. TWO RN VERIFICATIONS WAS PERFORM PER PROTOCOL, PATIENT PRONOUNCED AT 1814. FAMILY IS AT THE BED SIDE. DR. DANIELSON NOTIFIED.
--- NOTE | 2020-05-02 05:45 | NUR ---
Still awaiting confirmation or a decline from [facility] this AM about eye donation. Pt's HOB was elevated to 30 degrees, saline drops given and lightweight ice packs applied over closed eyelids at beginning of shift after family left. Ice packs changed out frequently during shift.
== END 2020-05-01 23:20 | DRG 177 ==
LOC: LND 11:48
PROVIDERS: ADMIT Hospitalist; ATTEND Internal Medicine
DX: J69.0 Pneumonitis due to inhalation of food and vomit (principal); J96.21 Acute and chronic respiratory failure with hypoxia; C71.9 Malignant neoplasm of brain, unspecified; G89.4 Chronic pain syndrome; K59.03 Drug induced constipation; T40.2X5A Adverse effect of other opioids, initial encounter; Z51.5 Encounter for palliative care; Z88.8 Allergy status to other drugs, medicaments and biological substances
CPT/HCPCS: J1100; J2060; J2270; J7030